=== PATIENT | female | born 1980 | race Caucasian/White ===

== ENCOUNTER 2016-08-04 14:38 | Emergency (ER) | payer OTHER ==
[2016-08-04] MEDS ORDERED: Sodium Chloride 0.9% 10 ML Syringe FLUSH PRN (14:45)
[2016-08-04] MEDS ORDERED: Sodium Chloride 0.9% 1,000 ML IV ONE (14:46)
--- NOTE | 2016-08-04 14:55 | EDM.PDOC ---
ED HPI GENERAL MEDICAL PROBLEM - General Chief Complaint: Diabetic Complaint Stated Complaint: Hypoglycemia; Nausea/Vomiting Time Seen by Provider: 08/04/16 14:44 Source of Information: Reports: Patient, EMS, EMS Notes Reviewed, RN, RN Notes Reviewed History Limitations: Reports: No Limitations - History of Present Illness INITIAL COMMENTS - FREE TEXT/NARRATIVE: Patient is brought to the ED at [facility] via EMS for a possible diabetic reaction versus hypoglycemia. EMS was called out to the patient's residence when she was found unresponsive by her children. Upon EMS arrival, patient was unresponsive. Blood sugar was checked and was not able to be read (<LO). IV was started and NS given, along with D50 and Zofran. Patient had no airway compromise, but did have emesis on clothing. Vital signs were stable enroute. Patient became more responsive once blood sugar normalized. Upon arrival, patient appeared confused and frighten. She complains of "just generally feeling sick." Patient appears chilled. No head injury or trauma. Patient aware of surroundings and alert. Patient denies any pain. Patient denies chest pain or SOB. Patient denies any recent hypoglycemic events. Patient states her blood sugars are usually well controlled. Patient is currently taking Levemir and Novolog daily. 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 - Related Data Allergies Allergy/AdvReac Type Severity Reaction Status Date / Time marijuana Allergy Airway Verified 08/04/16 15:03 Tightness Home Meds: Home Meds Insulin Regular, Human [Novolin R] 1 unit SUBCUT TID 09/22/15 [History] Insulin Detemir [Levemir] 12 units SQ BEDTIME 11/14/15 [History] buPROPion [Wellbutrin XL] 1 tab PO DAILY 11/14/15 [History] Albuterol [Ventolin HFA] 8 gm INH Q4H PRN 08/04/16 [History] Fluticasone Propionate [Flonase] 1 spray DAILY 08/04/16 [History] Insulin Detemir [Levemir] 8 units ACBREAKFAST 08/04/16 [History] Montelukast [Singulair] 10 mg PO BEDTIME 08/04/16 [History] Past Medical History Genitourinary History: Reports: UTI, Recurrent Neurological History: Reports: Brain Injury Endocrine/Metabolic History: Reports: Diabetes, Type I Social & Family History - Tobacco Use Smoking Status *Q: Current Every Day Smoker Years of Tobacco use: 20 Packs/Tins Daily: 0.1 - Recreational Drug Use Recreational Drug Use: No ED ROS GENERAL - Review of Systems Review Of Systems: See Below Constitutional: Reports: Chills, Weakness, Diaphoresis. Denies: Fever Respiratory: Denies: Shortness of Breath, Cough Cardiovascular: Denies: Chest Pain, Palpitations GI/Abdominal: Reports: Abdominal Pain, Nausea, Vomiting Skin: Reports: No Symptoms Neurological: Reports: Confusion. Denies: Headache, Numbness, Paresthesia, Tingling ED EXAM GENERAL NO PERIP PULSE - Physical Exam Exam: See Below Exam Limited By: No Limitations General Appearance: Alert, No Apparent Distress Eye Exam: Bilateral Eye: EOMI, Normal Inspection, PERRL Head: Atraumatic, Normocephalic Neck: Supple Respiratory/Chest: No Respiratory Distress, Lungs Clear, Normal Breath Sounds Cardiovascular: Regular Rate, Rhythm GI/Abdominal: Soft, Tender, Abnormal Bowel Sounds (Hyperactive) Neurological: Alert, Oriented Skin Exam: Warm, Dry, Intact, Normal Color, No Rash EKG INTERPRETATION EKG Date: 08/04/16 Time: 15:14 Rhythm: NSR Rate (beats/min): 73 [place]: normal P-wave: present QRS: normal ST-T: normal QT: normal [place]/PQ Interval: 0.12 Comparison: NA - no prior EKG EKG Interpretation Comments: 1. Sinus Rhythm with short [place] interval 2. Possible inferior [place], probably old Course - Vital Signs Last Recorded V/S: Last Vital Signs Temp 36.2 C 08/04/16 14:40 Pulse 77 08/04/16 14:40 Resp 16 08/04/16 14:40 BP 120/82 08/04/16 14:40 Pulse Ox 95 08/04/16 14:40 - Orders/Labs/Meds Orders: Active Orders 24 hr Category Date Time Status Accu Check [Blood Glucose Check, Bedside] [] ONETIME Care 08/04/16 16:02 Active EKG 12 Lead [EKG Documentation Completion] [RC] STAT Care 08/04/16 14:46 Active Sodium Chloride 0.9% [Saline Flush] Med 08/04/16 14:45 Active 10 ml FLUSH ASDIRECTED PRN Peripheral IV Insertion Adult [OM.PC] Routine Oth 08/04/16 14:45 Ordered Medication Orders Sodium Chloride (Saline Flush) 10 ml FLUSH ASDIRECTED PRN PRN Reason: Keep Vein Open Labs: Laboratory Tests 08/04/16 08/04/16 08/04/16 Range/Units 14:58 14:58 14:58 WBC 12.7 H (4.0-10.0) x10^3/uL RBC 4.33 (4.00-5.50) x10^6/uL Hgb 13.8 (12.0-16.0) g/dL Hct 40.9 (33.0-47.0) % MCV 94.5 H (78.0-93.0) fL MCH 31.9 (26.0-32.0) pg MCHC 33.7 (32.0-36.0) g/dL RDW Coeff of Pete 11.7 (10.0-15.0) % Plt Count 239 (130-400) x10^3/uL Neut % (Auto) 68.4 (50.0-80.0) % Lymph % (Auto) 21.8 L (25.0-50.0) % [place]och % (Auto) 8.3 (2.0-11.0) % Eos % (Auto) 1.3 (0.0-4.0) % Baso % (Auto) 0.2 (0.2-1.2) % POC ABG pH (7.35-7.45) POC ABG pCO2 (35-45) mmHG POC ABG pO2 (80-105) mmHG POC ABG HCO3 (22-26) mmol/L POC ABG Total CO2 (23-27) mmol/L POC ABG O2 Sat (95-98) % POC ABG Base Excess (-2-3) mmol/L POC FiO2 Sodium 144 (136-145) mmol/L Potassium 3.2 L (3.5-5.1) mmol/L Chloride 107 (98-107) mmol/L Carbon Dioxide 29 (21-32) mmol/L BUN 19 H (7-18) mg/dL Creatinine 0.9 (0.55-1.02) mg/dL Est Cr Clr Drug Dosing 90.31 mL/min Estimated GFR (MDRD) > 60 Glucose 66 L (74-106) mg/dL Hemoglobin A1c (4.5-6.2) % Lactic Acid 1.9 (0.4-2.0) mmol/L Calcium 8.5 (8.5-10.1) mg/dL C-Reactive Protein < 0.2 (<=0.9) mg/dL TSH, Ultra Sensitive 3.796 H (0.358-3.74) uIU/mL 08/04/16 08/04/16 Range/Units 14:58 15:11 WBC (4.0-10.0) x10^3/uL RBC (4.00-5.50) x10^6/uL Hgb (12.0-16.0) g/dL Hct (33.0-47.0) % MCV (78.0-93.0) fL MCH (26.0-32.0) pg MCHC (32.0-36.0) g/dL RDW Coeff of Pete (10.0-15.0) % Plt Count (130-400) x10^3/uL Neut % (Auto) (50.0-80.0) % Lymph % (Auto) (25.0-50.0) % [place]ulloch % (Auto) (2.0-11.0) % Eos % (Auto) (0.0-4.0) % Baso % (Auto) (0.2-1.2) % POC ABG pH 7.382 (7.35-7.45) POC ABG pCO2 44 (35-45) mmHG POC ABG pO2 91 (80-105) mmHG POC ABG HCO3 26 (22-26) mmol/L POC ABG Total CO2 28 H (23-27) mmol/L POC ABG O2 Sat 97 (95-98) % POC ABG Base Excess 1 (-2-3) mmol/L POC FiO2 0.21 Sodium (136-145) mmol/L Potassium (3.5-5.1) mmol/L Chloride (98-107) mmol/L Carbon Dioxide (21-32) mmol/L BUN (7-18) mg/dL Creatinine (0.55-1.02) mg/dL Est Cr Clr Drug Dosing mL/min Estimated GFR (MDRD) Glucose (74-106) mg/dL Hemoglobin A1c 8.8 H (4.5-6.2) % Lactic Acid (0.4-2.0) mmol/L Calcium (8.5-10.1) mg/dL C-Reactive Protein (<=0.9) mg/dL TSH, Ultra Sensitive (0.358-3.74) uIU/mL Meds: Medications Generic Name Dose Route Start Last Admin Trade Name Freq PRN Reason Stop Dose Admin Sodium Chloride 10 ml 08/04/16 14:45 Saline Flush FLUSH ASDIRECTED PRN Keep Vein Open Discontinued Medications Generic Name Dose Route Start Last Admin Trade Name Freq PRN Reason Stop Dose Admin Sodium Chloride 1,000 mls @ 999 mls/hr 08/04/16 14:46 08/04/16 14:58 Normal Saline IV 08/04/16 15:46 999 mls/hr ONETIME ONE Administration Potassium Chloride 40 meq 08/04/16 15:42 08/04/16 15:49 Klor-Con M20 PO 08/04/16 15:43 40 meq ONETIME ONE Administration Departure - Departure Time of Disposition: 16:32 Disposition: Home, Self-Care 01 Condition: good Clinical Impression: Hypoglycemic reaction - Discharge Information Instructions: Type 1 Diabetes Mellitus, Adult, Hypoglycemia Referrals: Lakeshia Hardin MD [Primary Care Provider] - Forms: ED Department Discharge Additional Instructions: 1. Stay well hydrated and rest 2. Check your blood sugars 1-2 times more a day for the next couple of days 3. Make an appointment to see Dr. Hardin in the clinic next week for a follow up 4. Call with any questions or concerns - Problem List Review Problem List Initiated/Reviewed/Updated: Yes - My Orders Last 24 Hours: My Active Orders 08/04/16 14:45 Sodium Chloride 0.9% [Saline Flush] 10 ml FLUSH ASDIRECTED PRN Peripheral IV Insertion Adult [OM.PC] Routine 08/04/16 14:46 EKG 12 Lead [EKG Documentation Completion] [RC] STAT 08/04/16 16:02 Accu Check [Blood Glucose Check, Bedside] [RC] ONETIME - Assessment/Plan Last 24 Hours: My Active Orders 08/04/16 14:45 Sodium Chloride 0.9% [Saline Flush] 10 ml FLUSH ASDIRECTED PRN Peripheral IV Insertion Adult [OM.PC] Routine 08/04/16 14:46 EKG 12 Lead [EKG Documentation Completion] [RC] STAT 08/04/16 16:02 Accu Check [Blood Glucose Check, Bedside] [RC] ONETIME
[2016-08-04 15:32] VITALS: BP 120/82
[2016-08-04 15:39] LABS: CHLORIDE,CL 107 mmol/L (98-107); SODIUM,NA 144 mmol/L (136-145)
[2016-08-04] MEDS ORDERED: Potassium Chloride 20 MEQ Tab.ER PO ONE (15:42)
== END 2016-08-04 16:40 | disposition home or self-care (01) ==
LOC: VM.ED 14:38
DX: E10.649 Type 1 diabetes mellitus with hypoglycemia without coma (principal); F17.210 Nicotine dependence, cigarettes, uncomplicated; Z79.4 Long term (current) use of insulin; Z87.440 Personal history of urinary (tract) infections; Z91.09 Other allergy status, other than to drugs and biological substances
CPT/HCPCS: 36415; 36600; 80048; 82803; 82962; 83036; 83605; 84443; 85025; 86140; 93005; 96360; 96361; 99284; A9270; J7030

== ENCOUNTER 2016-11-28 19:32 | Emergency (ER) | payer OTHER ==
[2016-11-28 19:45] VITALS: BP 120/76
--- NOTE | 2016-11-28 20:19 | EDM.PDOC ---
ED HPI GENERAL MEDICAL PROBLEM - General Chief Complaint: Diabetic Complaint Stated Complaint: low blood sugar Time Seen by Provider: 11/28/16 19:32 Source of Information: Reports: Patient, Family History Limitations: Reports: No Limitations - History of Present Illness INITIAL COMMENTS - FREE TEXT/NARRATIVE: Pt. had a hypoglycemic episode at home. EMS was summoned. Their glucometer read "low" indicating that the pts. blood sugar was less than 30mg/dl. IV was established and pt. was given an amp of D50. Pt. was unresponsive prior to this , and quickly regained consciousness. Pt. was subsequently transported to [facility]. Onset Date: 11/28/16 Location: Reports: Generalized Associated Symptoms: Reports: Diaphoresis - Related Data Allergies Allergy/AdvReac Type Severity Reaction Status Date / Time marijuana Allergy Airway Verified 08/04/16 15:03 Tightness Home Meds: Home Meds Insulin Regular, Human [Novolin R] 1 unit SUBCUT TID PRN 09/22/15 [History] Insulin Detemir [Levemir] 20 units SQ BEDTIME 11/14/15 [History] buPROPion [Wellbutrin XL] 1 tab PO DAILY 11/14/15 [History] Albuterol [Ventolin HFA] 8 gm INH Q4H PRN 08/04/16 [History] Montelukast [Singulair] 10 mg PO BEDTIME 08/04/16 [History] Past Medical History Respiratory History: Reports: Asthma Genitourinary History: Reports: UTI, Recurrent Neurological History: Reports: Brain Injury Endocrine/Metabolic History: Reports: Diabetes, Type I Oncologic (Cancer) History: Reports: Lymphoma - Past Surgical History HEENT Surgical History: Reports: Oral Surgery Social & Family History - Tobacco Use Smoking Status *Q: Current Every Day Smoker Years of Tobacco use: 20 Packs/Tins Daily: 0.3 - Recreational Drug Use Recreational Drug Use: No ED ROS GENERAL - Review of Systems Review Of Systems: See Below Constitutional: Reports: No Symptoms HEENT: Reports: No Symptoms Respiratory: Reports: No Symptoms Cardiovascular: Reports: No Symptoms Endocrine: Reports: Low Glucose GI/Abdominal: Reports: No Symptoms : Reports: No Symptoms Musculoskeletal: Reports: No Symptoms Skin: Reports: Diaphoresis Neurological: Reports: Confusion, Dizziness, Syncope ED EXAM GENERAL NO PERIP PULSE - Physical Exam Exam: See Below General Appearance: Alert, No Apparent Distress Head: Atraumatic, Normocephalic Neck: Normal Inspection, Supple, Non-Tender Respiratory/Chest: No Respiratory Distress, Lungs Clear, Normal Breath Sounds Cardiovascular: Normal Peripheral Pulses, Regular Rate, Rhythm, No Murmur GI/Abdominal: Normal Bowel Sounds Extremities: Normal Inspection Neurological: Alert, Oriented, CN II-XII Intact, Normal Cognition, Normal Gait, Normal Reflexes, No Motor/Sensory Deficits Psychiatric: Normal Affect, Normal Mood Course - Vital Signs Last Recorded V/S: Last Vital Signs Temp 36.4 C 11/28/16 19:43 Pulse 71 11/28/16 19:43 Resp 14 11/28/16 19:43 BP 120/76 11/28/16 19:43 Pulse Ox 95 11/28/16 19:43 Departure - Departure Time of Disposition: 19:43 Disposition: Home, Self-Care 01 Clinical Impression: Hypoglycemia - Discharge Information Instructions: Hypoglycemia Referrals: Lakeshia Hardin MD [Primary Care Provider] - Forms: ED Department Discharge Additional Instructions: Home to rest. Eat a full meal tonight. Check insulin closely over the next several days. Return to ER of call 911 if you have increased confusion, fatigue, chest pain or shortness of breath. - Assessment/Plan Assessment:: hypoglycemia Plan: Home to rest. Eat a full meal. Return to ER if you have any decreased LOC, confusion, or if your blood sugar is low.
== END 2016-11-28 20:03 | disposition home or self-care (01) ==
LOC: VM.ED 19:32
DX: E10.649 Type 1 diabetes mellitus with hypoglycemia without coma (principal); F17.210 Nicotine dependence, cigarettes, uncomplicated; J45.909 Unspecified asthma, uncomplicated; Z79.4 Long term (current) use of insulin
CPT/HCPCS: 99285